=== PATIENT | female | born 1990 | race Caucasian/White ===

== ENCOUNTER 2018-02-18 21:10 | Emergency (ER) | payer SELFPAY ==
[2018-02-18] MEDS ORDERED: KETOROLAC 60 MG INJ IM (22:03)
[2018-02-18] MEDS: IBUPROFEN 800 MG TAB PO (22:31)
== END 2018-02-18 22:45 | disposition home or self-care (01) ==
LOC: FTE 21:10
DX: L03.811 Cellulitis of head [any part, except face] (principal); R51 Headache; F17.210 Nicotine dependence, cigarettes, uncomplicated
CPT/HCPCS: 99283